=== PATIENT | female | born 1960 | race African-American/Black ===

== ENCOUNTER 2019-06-23 14:40 | Inpatient (IN) | payer SELFPAY ==
[~2019-06-23] VITALS: Ht 149.9 cm; Wt 71.6 kg
[~2019-06-23 14:40] MED LIST: ALAVERT10 M1 PO; ASPIRIN E.C. 8181 MG PO; CEPHALEXIN500 M1 PO; COENZYME Q-10100 MG PO; COZAAR50 MG PO; HYDROCHLOROTHIA25 MG PO; OMEGA 31000 MG PO; TENORMIN50 MG PO; VYTORIN 10 MG-41 TAB PO
[2019-06-23 17:26] LABS: HEMATOCRIT 43.8 % (37.0-47.0); HEMOGLOBIN 14.4 g/dl (12.5-16.0); MEAN CELL VOLUME 89 fl (80.0-100.0); MEAN CORPUSCULAR HEMOGLOBIN 29 pg (27.0-31.0); MEAN CORPUSCULAR HGB CONC 33 g/dl (33.0-37.0); PLATELET COUNT 422 K/mm3 (130-400); RED BLOOD COUNT 4.95 M/mm3 (4.10-5.30); REDCELL DISTRIBUTION WIDTH-CV 14.9 % (11.5-14.5)
[2019-06-23 17:32] LABS: INR 0.9 (0.8-3.0); PROTHROMBIN TIME 10.9 SECONDS (9.7-12.8)
[2019-06-23 17:34] LABS: PARTIAL THROMBOPLASTIN TIME 32.1 SECONDS (26.0-37.0)
[2019-06-23 17:38] LABS: ALBUMIN 4.2 gm/dL (3.5-5.0); BILIRUBIN,TOTAL 0.5 mg/dL (0.0-1.0); CALCIUM 9.5 mg/dL (8.4-10.2); CREATININE, serum 1.3 (0.52-1.25); POTASSIUM 4.5 mmol/L (3.4-5.0)
[2019-06-23] MEDS ORDERED: CRESTOR20 MG PO (17:49)
[2019-06-23] MEDS ORDERED: MITIGARE0.6 MG (17:50)
[2019-06-23] MEDS ORDERED: INDOCIN 25MG CA25 MG PO (17:51)
[2019-06-23] MEDS ORDERED: LIPITOR 40MG TA40 MG PO (17:51)
[2019-06-23] MEDS ORDERED: GLUCOPHAGE500 MG/TAB PO (17:51)
[2019-06-23] MEDS ORDERED: PRILOSEC 20MG20 MG PO (17:52)
[2019-06-23] MEDS ORDERED: TENORMIN100 MG PO (17:52)
[2019-06-23] MEDS ORDERED: MASON NATURAL2000 IU PO (17:53)
[2019-06-23 17:55] LABS: EOSINOPHIL 3 % (0-4); LYMPHOCYTE 31 % (20.0-51.0); NEUTROPHILS 65 % (42.0-75.2); PLATELET ESTIMATE INCREASED (NORMAL)
[2019-06-23] MEDS ORDERED: GLUCOPHAGE XR500 M1 PO (19:43)
[2019-06-23] MEDS ORDERED: COZAAR100 MG PO (19:44)
[2019-06-23] MEDS ORDERED: OMEGA-3 1000 MG1 CAP PO (19:45)
[2019-06-23] MEDS ORDERED: ASPIRIN E.C. 8181 MG PO (19:46)
[2019-06-23] MEDS ORDERED: HYGROTON 2525 MG/TAB PO (19:50)
[2019-06-23] MEDS ORDERED: LANTUS100 U/ML SQ (19:51)
--- NOTE | 2019-06-23 20:15 | NUR ---
Patient arrived to medical floor. Assessment complete. Lungs clear. Heart sounds normal. Bowels active x4. Pulses strong throughout. No edema noted. IV left wrist without complications. Denies pain at this time. Orientated to medical floor, room, and call light. Educated patient regarding clear liquid diet, stool sample, and I&Os with IV fluids. All questions answered at this time. Denies other needs. Call light in reach.
[2019-06-23 21:08] VITALS: BP 141/71; PULSE 69; TEMP 97.6
[2019-06-23 21:23] VITALS: BP 141/71; PULSE 69; TEMP 97.6
[2019-06-24] VITALS (7 sets, daily range): BP systolic 113–149; BP diastolic 66–81; PULSE 58–77; TEMP 97.6–98.4
--- NOTE | 2019-06-24 00:30 | NUR ---
Resting in bed. Denies needs. Call light in reach.
[2019-06-24 00:54] LABS: HEMOGLOBIN 11.7 g/dl (12.5-16.0)
--- NOTE | 2019-06-24 04:00 | NUR ---
Resting in bed. Denies needs. Call light in reach.
[2019-06-24 05:53] LABS: BASO # 0.1 (0.0-0.2); BASO % 0.6 % (0.0-2.0); EOS # 0.5 (0.0-0.7); EOS % 3.7 % (0-4.0); GRAN % 50.3 % (42.2-75.2); HEMOGLOBIN 11.2 g/dl (12.5-16.0); LYMPH # 4.7 (1.2-3.4); LYMPH % 38.7 % (20.0-51.0); MEAN CELL VOLUME 89 fl (80.0-100.0); MEAN CORPUSCULAR HEMOGLOBIN 29 pg (27.0-31.0); MEAN CORPUSCULAR HGB CONC 33 g/dl (33.0-37.0); MEAN PLATELET VOLUME 10.2 fl (7.4-10.4); MONO # 0.7 (0.1-0.6); MONO % 6.2 % (1.7-9.3); RED BLOOD COUNT 3.83 M/mm3 (4.10-5.30); REDCELL DISTRIBUTION WIDTH-CV 14.7 % (11.5-14.5)
[2019-06-24 06:00] LABS: HEMATOCRIT 33.9 % (37.0-47.0); PLATELET COUNT 301 K/mm3 (130-400)
[2019-06-24 06:02] LABS: CALCIUM 8.8 mg/dL (8.4-10.2); CREATININE, serum 1.09 (0.52-1.25); POTASSIUM 4.1 mmol/L (3.4-5.0)
--- NOTE | 2019-06-24 06:09 | NUR ---
Patient had uneventful night. No bowel movements throughout night. Denies needs this time. Call light in reach.
--- NOTE | 2019-06-24 07:08 | NUR ---
Report given to ARANZA Fabian
--- NOTE | 2019-06-24 07:50 | NUR ---
PATIENT RESTING IN BED. SHE DENIES ANY COMPLAINTS. REPORTS NO MORE STOOLS AT ALL SINCE 1100 YESTERDAY MORNING. BREAKFAST IS ORDERED
--- NOTE | 2019-06-24 11:39 | NUR ---
Patient lives at home with her (Misha Rojas phone: [phone]) in [place], [place] and plans to return home with her upon recovery. Patient is independent with daily living activities, has two children, one of which lives locally with grandkids who the patient is very involved with. Patient's primary care physician care is [facility], her pharmcy is [facility]), and she does not have advance directives completed at this time. Ian's (Misha) is retired therefore the patient and her have [employer] insurance coverage. No further needs at this time and social human services assistants will follow as needed.
--- NOTE | 2019-06-24 20:00 | NUR ---
Shift assessment complete. Patient awake, in bed. Drinking prep for colonoscopy in a.m. Patient states, she has had one bloody BM since starting the prep. Denies pain. Denies further needs at this time. Will continue to monitor.
[2019-06-25 03:47] VITALS: BP 160/67; PULSE 61; TEMP 98.9
--- NOTE | 2019-06-25 04:00 | NUR ---
Patient in bed, awake. Denies pain. Denies further needs at this time. Will continue to monitor.
[2019-06-25 06:24] LABS: CALCIUM 9.3 mg/dL (8.4-10.2); CREATININE, serum 0.94 (0.52-1.25)
[2019-06-25 06:35] LABS: BASO # 0.1 (0.0-0.2); BASO % 0.6 % (0.0-2.0); EOS # 0.5 (0.0-0.7); EOS % 4.2 % (0-4.0); GRAN # 5.6 (1.4-6.5); GRAN % 49.1 % (42.2-75.2); HEMOGLOBIN 11.5 g/dl (12.5-16.0); LYMPH # 4.5 (1.2-3.4); LYMPH % 39.9 % (20.0-51.0); MEAN CELL VOLUME 89 fl (80.0-100.0); MEAN CORPUSCULAR HEMOGLOBIN 29 pg (27.0-31.0); MEAN CORPUSCULAR HGB CONC 32 g/dl (33.0-37.0); MEAN PLATELET VOLUME 10.8 fl (7.4-10.4); MONO # 0.6 (0.1-0.6); MONO % 5.3 % (1.7-9.3); PLATELET COUNT 276 K/mm3 (130-400); RED BLOOD COUNT 4.01 M/mm3 (4.10-5.30); REDCELL DISTRIBUTION WIDTH-CV 14.5 % (11.5-14.5)
[2019-06-25 06:50] LABS: HEMATOCRIT 35.5 % (37.0-47.0)
--- NOTE | 2019-06-25 06:56 | NUR ---
PT TAKEN VIA STRETCHER FOR COLONOSCOPY BY [facility]ON, OR TRANSPORT.
[2019-06-25 08:00] VITALS: BP 139/73; PULSE 68; TEMP 97.8
--- NOTE | 2019-06-25 08:05 | NUR ---
PATIENT ARRIVED BACK TO ROOM 315 VIA WHEELCHAIR FROM COLONOSCOPY. PATIENT SETTELED INTO ROOM. AT THE BEDSIDE. POST-OP VSS. PATIENT IS A&OX4. VSS. TELE IN PLACE. BOWEL SOUNDS ACTIVE ALL FOUR QUADRANTS. PATIENT DENIES NAUSEA, VOMITING OR PAIN. POSITIVE PEDAL PULSES EQUAL BILATERALLY. SCD'S TO BLE. CALL LIGHT WITHIN REACH. NO NEEDS AT THIS TIME.
--- NOTE | 2019-06-25 11:17 | NUR ---
Initial visit; Patient thanked Chief Nursing Executive for looking in on her and states she is doing well and has someone who will stay in touch with their Termite Helper for her, her .
[2019-06-25 11:35] VITALS: BP 139/71; PULSE 72; TEMP 98.3
--- NOTE | 2019-06-25 12:25 | NUR ---
PATIENT'S LEFT FOREARM INT DISCONTINUED PER PENDING DISCHARGE. TIP INTACT. PATIENT TOLERATED WELL.
--- NOTE | 2019-06-25 12:55 | NUR ---
DISCHARGE INSTRUCTIONS REVIEWED WITH PATIENT. ALL QUESTIONS ANSWERED. PATIENT PERSONAL BELONGINGS GATHERED. PATIENT WAITING FOR RIDE TO ARRIVE FOR DISCHARGE.
--- NOTE | 2019-06-25 13:02 | NUR ---
PATIENT AMBULATED TO PERSONAL VEHICLE WITH MEDICAL STAFF. PATIENT DISCHARGED.
== END 2019-06-25 13:02 | disposition home or self-care (01) | DRG 378 ==
LOC: COL.ER 14:40 → MEDICAL 18:17
PROVIDERS: Emergency Medicine; Internal Medicine Gastroenterology; Nurse Practitioner Family; Physician Assistant; ADMIT Internal Medicine
PROC: 0DBE8ZX Excision of Large Intestine, Via Natural or Artificial Opening Endoscopic, Diagnostic (ICD-10-PCS; principal; 2019-06-25 07:00)
DX: K57.31 Diverticulosis of large intestine without perforation or abscess with bleeding (principal); N17.9 Acute kidney failure, unspecified; D72.829 Elevated white blood cell count, unspecified; E11.22 Type 2 diabetes mellitus with diabetic chronic kidney disease; I12.9 Hypertensive chronic kidney disease with stage 1 through stage 4 chronic kidney disease, or unspecified chronic kidney disease; N18.9 Chronic kidney disease, unspecified; D64.9 Anemia, unspecified; E78.5 Hyperlipidemia, unspecified; K21.9 Gastro-esophageal reflux disease without esophagitis; M10.9 Gout, unspecified; F17.210 Nicotine dependence, cigarettes, uncomplicated; K62.89 Other specified diseases of anus and rectum; Z79.82 Long term (current) use of aspirin; Z79.4 Long term (current) use of insulin
CPT/HCPCS: 99222-AI; 99239; C9113; J1815; J2250; J3010; J7030; J7120

== ENCOUNTER 2022-03-09 08:14 | Outpatient (CLI) | payer OTHER ==
[~2022-03-09] VITALS: Ht 149.9 cm; Wt 65.6 kg
[~2022-03-09 08:14] MED LIST changes: +ATARAX 10MG10 MG/TAB PO; +COZAAR100 MG PO; +CRESTOR20 MG PO; +FLONASEALLERGY NS; +GLUCOPHAGE XR500 M1 PO; +GLUCOPHAGE500 MG/TAB PO; +HYGROTON 2525 MG/TAB PO; +HYGROTON50 MG PO; +INDOCIN 25MG CA25 MG PO; +LANTUS100 U/ML SQ; +LIPITOR 40MG TA40 MG PO; +MITIGARE0.6 MG; +NORMODYNE200 MG PO; +NORVASC 5MG5 MG/TAB PO; +OMEGA-3 1000 MG1 CAP PO; +PHOSLO667 MG PO; +PRILOSEC 20MG20 MG PO; +PROAIR HFA0.09 MG/AC IH; +TENORMIN 5050 MG/TAB PO; +TENORMIN100 MG PO; +TRULICITY0.75 MG/0. SQ; +VITAMIN D31000 I1 PO; +VOLTAREN GEL 1%1 TU TP; +ZYLOPRIM 100MG100 MG PO; +ZYLOPRIM 300MG300 MG PO
[2022-03-09 08:50] VITALS: BP 159/104; PULSE 92; TEMP 98
[2022-03-09 10:59] VITALS: BP 173/93; PULSE 70
--- NOTE | 2022-03-09 11:00 | NUR ---
See merge for all medication, assessment, intervention, and vital sign times.
[2022-03-09 11:45] VITALS: BP 167/107; PULSE 75
[2022-03-09 12:00] VITALS: BP 164/99; PULSE 76
[2022-03-09 12:15] VITALS: BP 189/99; PULSE 79
[2022-03-09 12:30] VITALS: BP 190/102; PULSE 84
--- NOTE | 2022-03-09 13:05 | NUR ---
Pt is ready for departure. She has been resting comfortably with no pain at dialysis catheter site, and dressing to site has remained clean and dry. there is no swelling or other sign of bleeding. Vitals have remained stable. I reviewed dc instructions with pt who verbalized understanding. Pt was ambulatory to exit, where daughter was waiting to give pt a ride.
== END 2022-03-09 14:26 | disposition home or self-care (01) ==
LOC: COL.CAR 08:14
DX: T85.898A Other specified complication of other internal prosthetic devices, implants and grafts, initial encounter (principal); N18.6 End stage renal disease; F17.210 Nicotine dependence, cigarettes, uncomplicated; Z99.2 Dependence on renal dialysis
CPT/HCPCS: J0690; J1644

== ENCOUNTER → 2022-05-04 | Outpatient (CLI) | payer OTHER | LOC: COL.RAD 04-29 08:00 | DX: D35.02 Benign neoplasm of left adrenal gland (principal) | CPT/HCPCS: Q9967 ==

== ENCOUNTER → 2022-06-17 | Outpatient (CLI) | payer OTHER ==
[~2022-06-17] MED LIST changes: +CRESTOR 10MG10 MG PO; +NORCO 325 MG-51 TAB PO; +NORVASC 10MG10 MG PO
== END ==
LOC: COL.VAS 07:43
DX: I77.0 Arteriovenous fistula, acquired (principal)

== ENCOUNTER 2022-07-01 07:56 | Day surgery (SDC) | payer OTHER ==
[~2022-07-01] VITALS: Ht 152.4 cm; Wt 61.2 kg
[~2022-07-01 07:56] MED LIST changes: -CRESTOR 10MG10 MG PO; -NORCO 325 MG-51 TAB PO; -NORVASC 10MG10 MG PO
[2022-07-01 08:51] VITALS: BP 160/88; PULSE 81; TEMP 97
[2022-07-01 09:02] LABS: CREATININE, serum 6.61 mg/dL (0.57-1.11); POTASSIUM 4.7 mmol/L (3.5-4.5)
[2022-07-01] MEDS ORDERED: CRESTOR 10MG10 MG PO (09:08)
[2022-07-01] MEDS ORDERED: NORVASC 10MG10 MG PO (09:09)
[2022-07-01 11:16] VITALS: BP 117/79; PULSE 89
--- NOTE | 2022-07-01 11:16 | NUR ---
Patient returns to room 6 per cart from surgery accompanied by Megan COBIAN and Austin Humphries CRNA. Patient is on oxygen at 6L per mask. Patient coughing and has large amount of thick sputum noted draining down side of face. Unresponsive to verbal stimuli or touch. Keeps eyes closed. IV fluids infusing. Left AV fistula site intact with exofin skin glue.
--- NOTE | 2022-07-01 11:19 | NUR ---
Opens eyes now to verbal stimuli. Oxygen mask removed. Continues coughing. Less secretions. Sats 97% on room air. Will continue to monitor.
[2022-07-01] MEDS ORDERED: NORCO 325 MG-51 TAB PO (11:29)
[2022-07-01 11:31] VITALS: BP 125/71; PULSE 84
--- NOTE | 2022-07-01 11:31 | NUR ---
Taking few sips of water. Less coughing. Left AV fistula site without drainage and slight thrill noted.
[2022-07-01 11:46] VITALS: BP 141/63; PULSE 87
--- NOTE | 2022-07-01 11:46 | NUR ---
Continues to sip on water. Occasional non productive cough.
[2022-07-01 12:01] VITALS: BP 144/70; PULSE 71
--- NOTE | 2022-07-01 12:01 | NUR ---
Drinking orange juice. Offered snack and states wants to go home. Tolerates po fluids.
[2022-07-01 12:16] VITALS: BP 141/83; PULSE 76
--- NOTE | 2022-07-01 12:16 | NUR ---
IV discontinued and site is free of redness or swelling. Patient dresses self. Given dismissal instructions and voices understanding of these.
--- NOTE | 2022-07-01 12:37 | NUR ---
Dismissal instructions given and signed. All questions answered. Patient assisted into wheelchair and taken to the front door per wheelchair and assisted into vehicle with instructions in hand.
== END 2022-07-01 12:37 | disposition home or self-care (01) ==
LOC: SDCO 07:56
PROVIDERS: Surgery
DX: I12.0 Hypertensive chronic kidney disease with stage 5 chronic kidney disease or end stage renal disease (principal); E11.22 Type 2 diabetes mellitus with diabetic chronic kidney disease; N18.6 End stage renal disease; F17.210 Nicotine dependence, cigarettes, uncomplicated; Z79.899 Other long term (current) drug therapy; Z79.4 Long term (current) use of insulin
CPT/HCPCS: C1768; J0690; J2370; J2704; J3010; J7120

== ENCOUNTER 2022-07-06 08:09 | Day surgery (SDC) | payer OTHER ==
[~2022-07-06] VITALS: Ht 152.4 cm; Wt 61.6 kg
[~2022-07-06 08:09] MED LIST changes: +CRESTOR 10MG10 MG PO; +NORCO 325 MG-51 TAB PO; +NORVASC 10MG10 MG PO
[2022-07-06 08:58] VITALS: BP 174/99; PULSE 85; TEMP 98.4
[2022-07-06 09:00] LABS: CALCIUM 9.8 mg/dL (8.4-10.2); CREATININE, serum 7.83 mg/dL (0.57-1.11); POTASSIUM 4.6 mmol/L (3.5-4.5)
[2022-07-06] MEDS ORDERED: COZAAR 50MG50 MG/TAB PO (09:23)
[2022-07-06] MEDS ORDERED: PROTONIX 40MG T40 MG PO (09:38)
[2022-07-06 10:00] VITALS: BP 126/115; PULSE 84
[2022-07-06 10:15] VITALS: BP 157/90; PULSE 84; TEMP 96.9
--- NOTE | 2022-07-06 10:21 | NUR ---
1000 - PT arrives from procedure and was settled by Lindsey COBIAN; written report provided, however, it did not include respirations and temperature; BP, HR and SO2 obtained from vitals machine. 1015 - Vitals obtained. PT provided snack and drink. PT denies pain/nausea. Call gamboa is within use for TV controls. Non-slip socks remain on.
--- NOTE | 2022-07-06 10:23 | NUR ---
1015 - Full set of vitals obtained. PT denies pain.
[2022-07-06 10:30] VITALS: BP 167/90; PULSE 81
--- NOTE | 2022-07-06 10:33 | NUR ---
1030 - PT contacted per PT request; ETA 1100
--- NOTE | 2022-07-06 10:43 | NUR ---
1035 - Vitals obtained. IV discontinued. Catheter tip intact and pressure bandage applied. NO redness or swelling noted. DC instructions and educational material reviewed w/ PT who verbalized undestanding and signed the related paperwork. Questions answered to PT satisfaction. PT refused RN assistance changing into personal clothes. Call gamboa remains within reach if needed.
--- NOTE | 2022-07-06 10:59 | NUR ---
1055 - PT dismissed from endo via wheelchair by Payton COBIAN. PT has DC packet and personal belongings and was transferred into the care of her , who is driving private car. Additonal drink provided.
== END 2022-07-06 11:00 | disposition home or self-care (01) ==
LOC: SDCO 08:09
PROVIDERS: Nurse Anesthetist, Certified Registered
DX: K29.30 Chronic superficial gastritis without bleeding (principal); R13.10 Dysphagia, unspecified; K26.9 Duodenal ulcer, unspecified as acute or chronic, without hemorrhage or perforation; T18.2XXA Foreign body in stomach, initial encounter; K29.80 Duodenitis without bleeding; F17.210 Nicotine dependence, cigarettes, uncomplicated; K63.89 Other specified diseases of intestine; X58.XXXA Exposure to other specified factors, initial encounter
CPT/HCPCS: J2704; J7120

== ENCOUNTER 2022-08-16 10:30 | Outpatient (CLI) | payer OTHER ==
[~2022-08-16] VITALS: Ht 152.5 cm; Wt 62.7 kg
[2022-08-16] VITALS (8 sets, daily range): BP systolic 166–188; BP diastolic 92–105; PULSE 73–80; TEMP 97.6
[~2022-08-16 10:30] MED LIST changes: +COZAAR 50MG50 MG/TAB PO; +PROTONIX 40MG T40 MG PO
[2022-08-16] MEDS ORDERED: CATAPRES 0.1MG0.1 MG PO (10:58)
[2022-08-16] MEDS ORDERED: ASPIRIN E.C. 8181 MG PO (10:58)
[2022-08-16] MEDS ORDERED: TRULICITY0.75 MG/0. SQ (10:59)
[2022-08-16] MEDS ORDERED: PROAIR HFA0.09 MG/AC IH (11:19)
[2022-08-16] MEDS ORDERED: VOLTAREN GEL 1%1 TU TP (11:20)
--- NOTE | 2022-08-16 12:54 | NUR ---
SEE MERGE FOR VITAL SIGNS, ASSESSMENT, INTERVENTIONS AND MEDICATIONS GIVEN.
--- NOTE | 2022-08-16 14:32 | NUR ---
DC instructions reviewed with pt, she expressed understanding. She has tolerated PO fluids without issue following return from procedure. Pt is steady on feet in room. Dressing remains clean, dry and intact. She is assisted out to 's car by wheelchair with belongings.
== END 2022-08-16 14:32 | disposition home or self-care (01) ==
LOC: COL.CAR 10:30
DX: T82.41XA Breakdown (mechanical) of vascular dialysis catheter, initial encounter (principal); N18.9 Chronic kidney disease, unspecified; Y73.8 Miscellaneous gastroenterology and urology devices associated with adverse incidents, not elsewhere classified
CPT/HCPCS: C1751; C1769; J0690; J1644; J2250; J3010

== ENCOUNTER 2022-11-22 07:53 | Inpatient (IN) | payer OTHER ==
[~2022-11-22] VITALS: Ht 152.4 cm; Wt 60.1 kg
[2022-11-22] VITALS (15 sets, daily range): BP systolic 91–143; BP diastolic 49–70; PULSE 66–81; TEMP 97.6–98.6
[~2022-11-22 07:53] MED LIST changes: +CATAPRES 0.1MG0.1 MG PO
[2022-11-22 09:20] LABS: BASO % 0.2 % (0.0-2.0); EOS # 0.1 K/mm3 (0.0-0.7); EOS % 0.8 % (0.0-4.0); GRAN # 7.4 K/mm3 (1.4-6.5); LYMPH # 2.9 K/mm3 (1.2-3.4); MEAN CELL VOLUME 94 fl (80.0-100.0); MEAN CORPUSCULAR HGB CONC 32 g/dl (33.0-37.0); MEAN PLATELET VOLUME 10.1 fl (7.4-10.4); MONO # 0.7 K/mm3 (0.1-0.6); MONO % 6.1 % (1.7-9.3); PLATELET COUNT 234 K/mm3 (130-400); RED BLOOD COUNT 1.77 M/mm3 (4.10-5.30); REDCELL DISTRIBUTION WIDTH-CV 14.8 % (11.5-14.5)
[2022-11-22 09:24] LABS: HEMATOCRIT 16.7 % (37.0-47.0); HEMOGLOBIN 5.4 g/dl (12.5-16.0); MEAN CORPUSCULAR HEMOGLOBIN 31 pg (27-31)
[2022-11-22 09:47] LABS: ALBUMIN 3.1 gm/dL (3.4-4.8); BILIRUBIN,TOTAL 0.5 mg/dL (0.2-1.2); CALCIUM 8.6 mg/dL (8.4-10.2); CREATININE, serum 9.23 mg/dL (0.57-1.11); POTASSIUM 4.6 mmol/L (3.5-4.5); TOTAL PROTEIN 5.9 gm/dL (6.2-8.1)
[2022-11-22] MEDS ORDERED: RENVELA800 MG PO (09:57)
[2022-11-22] MEDS ORDERED: AURYXIA1 GM PO (09:57)
[2022-11-22] MEDS ORDERED: NORMODYNE200 MG PO (10:02)
--- NOTE | 2022-11-22 11:00 | NUR ---
PATIENT ARRIVED TO UNIT IN STABLE CONDITION. PATIENT ALERT ORIENTED AND AWAKE. ASSESSMENT DONE. JES STATED HER HUSABND IS TO BRING HER MEDICATION LIST.
--- NOTE | 2022-11-22 13:20 | NUR ---
PATIENT AWAKE AND ALERT, BLOOD TRANSFUSING. PATIENT TOLERATING WELL. NO S/S OF REACTION AT THIS TIME. CALL LIGHT WITH IN REACH. NO NEEDS OR COMPLAITNS AT THIS TIME.
--- NOTE | 2022-11-22 15:09 | NUR ---
PATIENT COMPLAINED OF SEVERE ITCHING ALL OVER AND STATED SHE WANTED TO "JUMP OUT" OF HER SKIN. BLOOD TRANSFUSION STOPPED. IV LINE FLUSHED. NO RASH OR ANY PHYSICAL SIGN OF REACTION BESIDE PATIETN COMPLAINTS. ONCE LINE WAS FLUSHED PATIETN STATED SHE WAS BEGINNING TO FEEL BETTER AND "ITS BEGINNING TO GO AWAY." PHYSICIAN MADE AWARE.
--- NOTE | 2022-11-22 17:10 | NUR ---
SPOKE WITH THEODORE. DURING LAST TRANSFUSIO SHE WOULD MAKE COMMENTS LIKE "EW, BLOOD! WHOS BLOOD IS THAT!" RN SPOKE CALMLY WITH NANCY AND ENSURED HER THAT BLOOD GOES THROUGH A SPECIFIC PROCESS TO ENSURE IT IS SAFE FOR ADMINISTRATION. EDUCATED PATIENT ON HER STUATION AND THE NEED OF THIS BLOOD TRANSFUSION IS CRITICAL FOR HER. PRIOR TO PICKING UP BLOOD, THIS RN PRVIDED REASSURING AND ENCOURAGING WORDS THAT THIS TRANSFUSION IS NECENSSARY, AND WHILE THE THOUGHT OF THE BLOOD MAY BE UCOMFORTABLE FOR HER, SHE WILL BE OK, SHE WILL MAKE IT THROUGH THIS TRANSFUSION. PATIENT AGREED TO HAVE SECOND UNIT.
--- NOTE | 2022-11-22 18:41 | NUR ---
BLOOD TRANSFUSION STILL INFUSING AT 90CC (SLOWEST RATE ALLOWED TO COMPLETE BLOOD WITHIN 4 HOUR REQUIRED TIME.) PATIENT TOLERATING WELL. PATIENT DENIES ANY NEEDS OR COPMLAINTS AT THIS TIME. HAS HAD AT LEAST 5 BM SINCE ARRIVAL FROM ED. BOWL PREP AT BEDSIDE. CALL LIGHT WITH IN REACH.
[2022-11-22] MEDS ORDERED: PROTONIX 40MG T40 MG PO (19:38)
[2022-11-23] VITALS (11 sets, daily range): BP systolic 105–170; BP diastolic 51–79; PULSE 69–107; TEMP 97.9–98.9
[2022-11-23 00:21] LABS: HEMATOCRIT 18.7 % (37.0-47.0); HEMOGLOBIN 6.1 g/dl (12.5-16.0)
--- NOTE | 2022-11-23 01:11 | NUR ---
DR MORENO NOTIFIED OF PATIENTS HGB OF 6.1 AFTER 2 UNITS OF BLOOD. PROVIDER STATED TO RECHECK H&H IN MORNING. NO FURTHER ORDERS GIVEN AT THIS TIME.
[2022-11-23 06:45] LABS: HEMATOCRIT 17.8 % (37.0-47.0)
[2022-11-23 07:00] LABS: CALCIUM 8.2 mg/dL (8.4-10.2); CREATININE, serum 11.8 mg/dL (0.57-1.11)
[2022-11-23 07:06] LABS: POTASSIUM 6.5 mmol/L (3.5-4.5)
--- NOTE | 2022-11-23 09:36 | NUR ---
CRUZITO met with the patient to discuss discharge plan. The patient lives in [place] with her , Misha (ph#[phone]). She reports independence with ADLs and does not have any DME. The patient's PCP is Dr. Wolf at the [facility] and she receives her medications from [facility]. She receives dialysis at [facility] M/W[facility]F at [phone]. The patient does not have a DPOA-HC and she was not interested in completing one at this time. The patient plans to return home with her upon discharge. No additional needs at this time. *Discharge plan: home with *
--- NOTE | 2022-11-23 11:36 | NUR ---
PATIENT BLOOD TRANSFUSION CONTINUING WITH DIALYSIS NURSE AT [facility]. STATION COOK HAS THIS RN'S EXTENSION IF NEEDED. THIS RN WAS PRESENT IN ROOM FOR THE FIRST 15 MINUTES. PATIENT DENIES ANY NEEDS OR COMPLAINTS. WILL CHECK BACK.
[2022-11-23 12:11] LABS: HEMATOCRIT 20.9 % (37.0-47.0); HEMOGLOBIN 7.1 g/dl (12.5-16.0)
[2022-11-23 20:24] LABS: HEMATOCRIT 15.3 % (37.0-47.0); HEMOGLOBIN 5.2 g/dl (12.5-16.0)
[2022-11-24] VITALS (14 sets, daily range): BP systolic 129–186; BP diastolic 46–82; PULSE 80–114; TEMP 97.7–99.1
[2022-11-24 06:48] LABS: BASO # 0.1 K/mm3 (0.0-0.2); BASO % 0.4 % (0.0-2.0); EOS % 0.2 % (0.0-4.0); GRAN # 13.2 K/mm3 (1.4-6.5); GRAN % 78.2 % (42.2-75.2); LYMPH # 2.2 K/mm3 (1.2-3.4); MEAN CELL VOLUME 93 fl (80.0-100.0); MEAN CORPUSCULAR HGB CONC 34 g/dl (33.0-37.0); MEAN PLATELET VOLUME 10.6 fl (7.4-10.4); MONO # 1.2 K/mm3 (0.1-0.6); PLATELET COUNT 175 K/mm3 (130-400); RED BLOOD COUNT 2.04 M/mm3 (4.10-5.30); REDCELL DISTRIBUTION WIDTH-CV 15.1 % (11.5-14.5)
[2022-11-24 07:01] LABS: HEMOGLOBIN 6.4 g/dl (12.5-16.0); MEAN CORPUSCULAR HEMOGLOBIN 31 pg (27-31)
[2022-11-24 07:11] LABS: ALANINE AMINOTRANSFERASE < 6 U/L (0-55); ALBUMIN 2.5 gm/dL (3.4-4.8); ALKALINE PHOSPHATASE 40 U/L (40-150); ANION GAP 11 mmol/L (7-16); AST,SGOT 16 U/L (5-34); BILIRUBIN,TOTAL 0.5 mg/dL (0.2-1.2); BLOOD UREA NITROGEN 28 mg/dL (10-20); CALCIUM 8.4 mg/dL (8.4-10.2); CARBON DIOXIDE 23 mmol/L (23-31); CHLORIDE 103 mmol/L (98-107); CREATININE, serum 6.68 mg/dL (0.57-1.11); GLUCOSE 85 mg/dL (70-99); PHOSPHOROUS 8.3 mg/dL (2.3-4.7); POTASSIUM 5.3 mmol/L (3.5-4.5); SODIUM 137 mmol/L (136-145); TOTAL PROTEIN 4.5 gm/dL (6.2-8.1)
--- NOTE | 2022-11-24 11:01 | NUR ---
SHIFT ASSESSMENT COMPLETED. PATIENT IS ALERT AND ORIENTED X4. DENIES PAIN. SCHEDULED FOR DIALYSIS THIS MORNING. HGB LOW, ONE UNIT OF PRBC ORDERED, RECHECK H AND H 3 HOURS POST TRANSFUSION PER MADDI HUA. FISTULA TO LEFT ARM POSITIVE FOR THRILL AND BRUIT. DIALYSIS CATH TO RIGHT UPPER CHEST INTACT, DRESSING IN PLACE. DENIES ANY NEEDS AT THIS TIME. CALL LIGHT WITHIN REACH.
--- NOTE | 2022-11-24 14:15 | NUR ---
PATIENT IN BED AT THIS TIME. RECEIVED ONE UNIT OF BLOOD DURING DIALYSIS PER DR. MORENO REQUEST. AWAITING DELVIERY OF BOWEL PREP FROM PHARMACY. PER DR. SHIN, PATIENT TO START BOWEL PREP NOW AND BE PREMEDICATED WITH REGLAN AND ZOFRAN.
[2022-11-24 15:34] LABS: HEMATOCRIT 21.1 % (37.0-47.0); HEMOGLOBIN 7.5 g/dl (12.5-16.0)
--- NOTE | 2022-11-24 15:48 | NUR ---
DUPLICATE BLOOD ORDER NOTED, ORDER D/C PER MADDI HUA. BLOOD BANK UPDATED. PATIENT'S RECHECK HGB NOTED TO BE ABOVE 7. PATIENT CURRENTLY TAKING BOWEL PREP AND TOLERATING WELL.
--- NOTE | 2022-11-24 18:16 | NUR ---
PATIENT HYPERTENSIVE. DR. MORENO NOTIFIED, ORDERS RECEIVED TO RESUME HOME CATAPRES AND LOSARTAN, AND TO GIVE A DOSE OF EACH NOW. ORDERS ENTERED. PATIENT DENIES ANY NEEDS AT THIS TIME. ON BOWEL PREP, TOLERATING WELL, DENIES NAUSEA. CALL LIGHT WITHIN REACH.
--- NOTE | 2022-11-24 18:31 | NUR ---
PATIENT TOLERATING BOWEL PREP WELL, LATEST BOWEL MOVEMENT NOTED TO BE CLEAR. PER PATIENT, SHE DID HAVE A FEW "DARKER" STOOLS, WHICH WERE NOTED TO BE MOSTLY BROWN IN COLOR WITH SCANT BLOOD NOTED. PATIENT STATES SHE FEELS GOOD AND WANTS TO CONTINUE BOWEL PREP.
[2022-11-25] VITALS (15 sets, daily range): BP systolic 147–175; BP diastolic 56–73; PULSE 64–91; TEMP 98–99
[2022-11-25 07:01] LABS: ALBUMIN 2.7 gm/dL (3.4-4.8); BILIRUBIN,TOTAL 0.6 mg/dL (0.2-1.2); CALCIUM 8.5 mg/dL (8.4-10.2); CREATININE, serum 4.84 mg/dL (0.57-1.11); PHOSPHOROUS 5.1 mg/dL (2.3-4.7); POTASSIUM 3.7 mmol/L (3.5-4.5); TOTAL PROTEIN 4.8 gm/dL (6.2-8.1)
[2022-11-25 07:31] LABS: MEAN CELL VOLUME 93 fl (80.0-100.0); MEAN CORPUSCULAR HGB CONC 34 g/dl (33.0-37.0); MEAN PLATELET VOLUME 10.4 fl (7.4-10.4); PLATELET COUNT 159 K/mm3 (130-400); RED BLOOD COUNT 2.05 M/mm3 (4.10-5.30); REDCELL DISTRIBUTION WIDTH-CV 15.8 % (11.5-14.5)
[2022-11-25 07:32] LABS: MEAN CORPUSCULAR HEMOGLOBIN 31 pg (27-31)
[2022-11-25 07:33] LABS: HEMOGLOBIN 6.4 g/dl (12.5-16.0)
[2022-11-25 09:01] LABS: BASOPHIL 2 % (0-2); LYMPHOCYTE 12 % (20.0-51.0); METAMYELOCYTE 1 % (0-0); MYELOCYTE 1 % (0-0); NEUTROPHILS 75 % (42.0-75.2); NUCLEATED RED BLOOD CELL 1 (0-6); PLATELET ESTIMATE NORMAL (NORMAL)
[2022-11-25 09:02] LABS: ANISOCYTOSIS 1+
[2022-11-25 09:04] LABS: POLYCHROMASIA 1+
--- NOTE | 2022-11-25 10:09 | NUR ---
SHIFT ASSESSMENT COMPLETED AND MORNING MEDICATIONS ADMINISTERED PER ORDER. PATIENT IS ALERT AND ORIENTED. DENIES PAIN. LUNGS CTA. FISTULA TO LEFT ARM POSITIVE FOR THRILL AND BRUIT. DIALYSIS CATHETER TO RIGHT CHEST WITH GAUZE DRESSING INTACT. PATIENT DID NOT FINISH BOWEL PREP LAST NIGHT, AND IS HAVING SOME CLEAR AND SOME YELLOW/BROWN STOOLS. ADMINISTERING 1 UNIT PRBC AT THIS TIME, WILL ATTEMPT AN ENEMA FOLLOWING BLOOD TRANSFUSION. PATIENT DENIES ANY NEEDS AT THIS TIME. CALL LIGHT WITHIN REACH.
--- NOTE | 2022-11-25 11:16 | NUR ---
PATIENT TOLERATING BLOOD ADMINISTRATION WELL. IV NOTED TO BE LEAKING SLIGHTLY. IV FLUSHED AND IS PATENT. RATE ON BLOOD REDUCED TO 60ML/HR, WILL CONTINUE TO MONITOR IV SITE
--- NOTE | 2022-11-25 13:49 | NUR ---
BLOOD TRANSFUSION COMPLETE. PATIENT HAS BEEN NPO SINCE MIDNIGHT EXCEPT BOWEL PREP, WHICH PATIENT STOPPED TAKING AROUND 0900. PATIENT HAS CLEAR STOOLS, WILL HOLD OFF ON ENEMA FOR NOW, PATIENT TO LEAVE FOR COLONOSCOPY AROUND 1500.
--- NOTE | 2022-11-25 15:47 | NUR ---
PATIENT OFF THE UNIT- GOING TO ENDO FOR COLONOSCOPY. REPORT GIVEN TO ARANZA CHACON.
--- NOTE | 2022-11-25 16:40 | NUR ---
Patient arrived to room 357 via stretcher. Post op vitals initiated.
--- NOTE | 2022-11-25 16:55 | NUR ---
PATIENT BACK FROM ENDO IN ROOM AT THIS TIME. VITAL SIGNS STABLE, BP IS ELEVATED AT 171/73. PER NOMI LOBO, PATIENT RECEIVED LOBETALOL FOR BP WHILE IN PROCEDURE, BUT RN OKAY TO GIVE ADDITIONAL BP MEDICATIONS PER ORDERS UPON ARRIVAL. PRN HYDRALAZINE ADMINISTERED PER ORDER. DIALYSIS/ ADA DIET REORDERED PER MADDI HUA. 3 HOUR POST TRANSFUSION HGB AND HCT SCHEDULED WHILE PATIENT WAS IN ENDO, ORDER PLACED FOR NOW. PATIENT DENIES ANY NEEDS AT THIS TIME. CALL LIGHT WITHIN REACH.
[2022-11-25 17:18] LABS: HEMATOCRIT 22.1 % (37.0-47.0); HEMOGLOBIN 7.6 g/dl (12.5-16.0)
[2022-11-26 00:13] VITALS: BP 144/63; PULSE 78; TEMP 98.8
[2022-11-26 03:35] VITALS: BP 150/47; PULSE 74; TEMP 98.3
[2022-11-26 07:19] VITALS: BP 154/73; PULSE 77; TEMP 98.2
--- NOTE | 2022-11-26 08:34 | NUR ---
PATIENT TAKEN VIA WHEELCHAIR BY REGIONAL DIRECTOR OF ADMISSIONS TO DIALYSIS.
--- NOTE | 2022-11-26 09:13 | NUR ---
Patient awake and oriented in bed upon enering the room. Patient has an INT in the right forearm with minimal bruising, with no signs of redness or edema. Patient has a dialysis access port on the right upper chest with no sign of redness or edema. There were no complaints of pain at this time from the patient. Primary nurse notified.
[2022-11-26 10:03] LABS: MEAN CELL VOLUME 91 fl (80.0-100.0); MEAN CORPUSCULAR HGB CONC 34 g/dl (33.0-37.0); MEAN PLATELET VOLUME 9.8 fl (7.4-10.4); PLATELET COUNT 174 K/mm3 (130-400); REDCELL DISTRIBUTION WIDTH-CV 16.8 % (11.5-14.5)
[2022-11-26 10:07] LABS: HEMATOCRIT 22.7 % (37.0-47.0); HEMOGLOBIN 7.8 g/dl (12.5-16.0); MEAN CORPUSCULAR HEMOGLOBIN 31 pg (27-31)
[2022-11-26 10:21] LABS: ALBUMIN 2.8 gm/dL (3.4-4.8); BILIRUBIN,TOTAL 0.7 mg/dL (0.2-1.2); CALCIUM 8.3 mg/dL (8.4-10.2); CREATININE, serum 5.91 mg/dL (0.57-1.11); POTASSIUM 3.2 mmol/L (3.5-4.5); TOTAL PROTEIN 5.1 gm/dL (6.2-8.1)
[2022-11-26 10:57] LABS: ANISOCYTOSIS 1+; BAND 2 % (0-10); EOSINOPHIL 2 % (0-4); LYMPHOCYTE 18 % (20.0-51.0); NEUTROPHILS 71 % (42.0-75.2); PLATELET ESTIMATE NORMAL (NORMAL)
[2022-11-26 11:41] VITALS: BP 181/81; PULSE 69; TEMP 98
--- NOTE | 2022-11-26 14:00 | NUR ---
PATIENT GIVEN DISCHARGE INSTRUCTIONS AND EDUCATION. IV DISCONTINUED. MEDS TO AVOID DISCUSSED WITH NANCY. NANCY VERBALIZES UNDERSTANDING. PATIENT TAKEN BY THIS RN TO PATIENT ENTRANCE WHERE SHE WAS PICKED UP BY HER . PATIENT LEFT IN STABLE CONDITION.
== END 2022-11-26 14:00 | disposition home or self-care (01) | DRG 377 ==
LOC: COL.ER 07:53 → MEDICAL 09:44
PROVIDERS: Family Medicine; Internal Medicine; Internal Medicine Gastroenterology; Nurse Anesthetist, Certified Registered; Registered Nurse; ADMIT Internal Medicine Nephrology
PROC: 30233N1 Transfusion of Nonautologous Red Blood Cells into Peripheral Vein, Percutaneous Approach (ICD-10-PCS; 2022-11-22)
PROC: 5A1D70Z Performance of Urinary Filtration, Intermittent, Less than 6 Hours Per Day (ICD-10-PCS; 2022-11-23)
PROC: 0DJD8ZZ Inspection of Lower Intestinal Tract, Via Natural or Artificial Opening Endoscopic (ICD-10-PCS; principal; 2022-11-25 15:00)
DX: K57.31 Diverticulosis of large intestine without perforation or abscess with bleeding (principal); N18.6 End stage renal disease; I12.0 Hypertensive chronic kidney disease with stage 5 chronic kidney disease or end stage renal disease; D62 Acute posthemorrhagic anemia; E78.5 Hyperlipidemia, unspecified; E11.22 Type 2 diabetes mellitus with diabetic chronic kidney disease; E11.42 Type 2 diabetes mellitus with diabetic polyneuropathy; F17.210 Nicotine dependence, cigarettes, uncomplicated; M10.9 Gout, unspecified; D63.1 Anemia in chronic kidney disease; J30.2 Other seasonal allergic rhinitis; E66.9 Obesity, unspecified; I95.9 Hypotension, unspecified; E87.5 Hyperkalemia; E83.39 Other disorders of phosphorus metabolism; A63.0 Anogenital (venereal) warts; K64.0 First degree hemorrhoids; Z79.82 Long term (current) use of aspirin; Z99.2 Dependence on renal dialysis; Z23 Encounter for immunization; Z68.26 Body mass index [BMI] 26.0-26.9, adult
CPT/HCPCS: J1200; J1644; J1756; J2405; J2597; J2704; J2765; J7030; P9016; Q5105; Q9967

== ENCOUNTER 2022-12-07 10:43 | Emergency (ER) | payer OTHER ==
[~2022-12-07] VITALS: Ht 152.4 cm; Wt 60.0 kg
[~2022-12-07 10:43] MED LIST changes: +AURYXIA1 GM PO; +RENVELA800 MG PO
[2022-12-07 12:17] LABS: BASO # 0.1 K/mm3 (0.0-0.2); BASO % 0.6 % (0.0-2.0); EOS # 0.2 K/mm3 (0.0-0.7); EOS % 1.7 % (0.0-4.0); GRAN # 8.1 K/mm3 (1.4-6.5); GRAN % 71.1 % (42.2-75.2); LYMPH # 2.1 K/mm3 (1.2-3.4); LYMPH % 18.3 % (20.0-51.0); MEAN CELL VOLUME 102 fl (80.0-100.0); MEAN CORPUSCULAR HGB CONC 31 g/dl (33.0-37.0); MEAN PLATELET VOLUME 9.7 fl (7.4-10.4); MONO # 0.9 K/mm3 (0.1-0.6); MONO % 7.8 % (1.7-9.3); PLATELET COUNT 392 K/mm3 (130-400); REDCELL DISTRIBUTION WIDTH-CV 17.9 % (11.5-14.5)
[2022-12-07 12:18] LABS: HEMATOCRIT 26.4 % (37.0-47.0); HEMOGLOBIN 8.1 g/dl (12.5-16.0); MEAN CORPUSCULAR HEMOGLOBIN 31 pg (27-31)
[2022-12-07 12:30] LABS: ALBUMIN 3.1 gm/dL (3.4-4.8); BILIRUBIN,TOTAL 0.7 mg/dL (0.2-1.2); CALCIUM 9.2 mg/dL (8.4-10.2); CREATININE, serum 9.26 mg/dL (0.57-1.11); POTASSIUM 4.6 mmol/L (3.5-4.5); TOTAL PROTEIN 6.4 gm/dL (6.2-8.1)
[2022-12-07 16:11] VITALS: BP 158/75; PULSE 97; TEMP 98.1
== END 2022-12-07 16:26 | disposition short-term general hospital (02) ==
LOC: COL.ER 10:43
PROVIDERS: Nurse Practitioner
DX: K62.5 Hemorrhage of anus and rectum (principal); I12.0 Hypertensive chronic kidney disease with stage 5 chronic kidney disease or end stage renal disease; E11.22 Type 2 diabetes mellitus with diabetic chronic kidney disease; N18.6 End stage renal disease; N17.9 Acute kidney failure, unspecified; F17.200 Nicotine dependence, unspecified, uncomplicated; Z99.2 Dependence on renal dialysis

== ENCOUNTER → 2022-12-28 | Outpatient (CLI) | payer OTHER ==
[~2022-12-28] VITALS: Ht 152.4 cm; Wt 59.9 kg
[~2022-12-28] MED LIST changes: +VITAMIN D362.5 MC1 PO
[2022-12-28 08:13] VITALS: BP 203/105; PULSE 91; TEMP 97.5
[2022-12-28 08:50] VITALS: BP 187/104; PULSE 96
== END ==
LOC: COL.RAD 07:46
DX: Z45.2 Encounter for adjustment and management of vascular access device (principal)

== ENCOUNTER 2023-02-01 12:37 | Day surgery (SDC) | payer OTHER ==
[~2023-02-01] VITALS: Ht 152.4 cm; Wt 60.0 kg
[2023-02-01 13:27] VITALS: BP 150/79; PULSE 73; TEMP 974
[2023-02-01 13:32] VITALS: BP 150/79; PULSE 73; TEMP 97.4
[2023-02-01] MEDS ORDERED: NORCO 325 MG-51 TAB PO (15:02)
[2023-02-01] MEDS ORDERED: LIDO35.4 TP (15:02)
[2023-02-01 15:13] LABS: CALCIUM 9.7 mg/dL (8.4-10.2); CREATININE, serum 8.94 mg/dL (0.57-1.11); POTASSIUM 5.1 mmol/L (3.5-4.5)
[2023-02-01 16:50] VITALS: BP 142/68; PULSE 76; TEMP 97.4
[2023-02-01 17:05] VITALS: BP 142/70; PULSE 76
[2023-02-01 17:07] VITALS: TEMP 97.5
[2023-02-01 17:20] VITALS: BP 141/73; PULSE 72
--- NOTE | 2023-02-01 17:35 | NUR ---
1650 RETURNS TO ROOM 5 PER CART. AWAKE, ALERT. RESP UNLABORED. VITAL SIGNS OBTAINED. DEEP BREATHES AND COUGHS WELL ON REQUEST. HOB ELEVATED 50 DEGREES. DENIES DISCOMFORT. GAUZE PAD TO RECTAL AREA WITH SCANT RED DRAINAGE OBSERVED. 1705 TOLERATES PO JUICE WITHOUT NAUSEA 1720 DISCHARGE INSTRUCTIONS REVIEWED. PATIENT VERBALIZES UNDERSTANDING. COPY PROVIDED IN DISCHCARGE FOLDER 1727 SITS ON EDGE OF BED. DRESSES SELF.DENIES DISCOMFORT. RESP UNLABORED
[2023-02-07] VITALS (10 sets, daily range): O2SAT 100
[2023-02-08] VITALS (68 sets, daily range): O2SAT 93–100
== END 2023-02-01 17:37 | disposition home or self-care (01) ==
LOC: SDCO 12:37
PROVIDERS: Registered Nurse
DX: A63.0 Anogenital (venereal) warts (principal); F17.210 Nicotine dependence, cigarettes, uncomplicated
CPT/HCPCS: J0690; J1100; J2405; J2704; J3010; J7120

== ENCOUNTER 2023-02-07 01:44 | Inpatient (IN) | payer OTHER ==
[2023-02-07] VITALS (1055 sets, daily range): BP systolic 162–188; BP diastolic 97–106; PULSE 70–92; TEMP 98.6–99.1; O2SAT 75–100
[~2023-02-07] VITALS: Ht 152.4 cm; Wt 66.4 kg
[~2023-02-07 01:44] MED LIST changes: +LIDO35.4 TP
[2023-02-07 02:01] LABS: BASO # 0.1 K/mm3 (0.0-0.2); BASO % 0.5 % (0.0-2.0); EOS # 0.3 K/mm3 (0.0-0.7); EOS % 1.8 % (0.0-4.0); GRAN # 11.1 K/mm3 (1.4-6.5); HEMATOCRIT 41.5 % (37.0-47.0); HEMOGLOBIN 12.8 g/dl (12.5-16.0); LYMPH # 2.3 K/mm3 (1.2-3.4); MEAN CELL VOLUME 104 fl (80.0-100.0); MEAN CORPUSCULAR HEMOGLOBIN 32 pg (27-31); MEAN CORPUSCULAR HGB CONC 31 g/dl (33.0-37.0); MEAN PLATELET VOLUME 9.9 fl (7.4-10.4); MONO # 0.8 K/mm3 (0.1-0.6); MONO % 5.2 % (1.7-9.3); PLATELET COUNT 381 K/mm3 (130-400); RED BLOOD COUNT 3.99 M/mm3 (4.10-5.30); REDCELL DISTRIBUTION WIDTH-CV 16.5 % (11.5-14.5)
[2023-02-07 02:09] LABS: INR 0.8 (0.8-3.0); PROTHROMBIN TIME 9.7 SECONDS (9.7-12.8)
[2023-02-07 02:12] LABS: PARTIAL THROMBOPLASTIN TIME 28.1 SECONDS (26.0-37.0)
[2023-02-07 02:13] LABS: ARTERIAL BLD GAS TCO2 CT 19.6; ARTERIAL BLOOD GAS BASE EXCESS -4.9 (-2-2); ARTERIAL BLOOD GAS HCO3 18.7 meq/L (22-26); ARTERIAL BLOOD GAS PCO2 30.2 mmHg (35-45); ARTERIAL BLOOD GAS PO2 93.6 mmHg (80-100); ARTERIAL BLOOD GAS pH 7.41 (7.35-7.45)
[2023-02-07 02:20] LABS: ALBUMIN 3.9 gm/dL (3.4-4.8); ALKALINE PHOSPHATASE 128 U/L (40-150); ANION GAP 17 mmol/L (7-16); AST,SGOT 21 U/L (5-34); BILIRUBIN,TOTAL 0.7 mg/dL (0.2-1.2); BLOOD UREA NITROGEN 66 mg/dL (10-20); CARBON DIOXIDE 18 mmol/L (23-31); CHLORIDE 104 mmol/L (98-107); CREATININE, serum 10.38 mg/dL (0.57-1.11); GLUCOSE 115 mg/dL (70-99); POTASSIUM 5.7 mmol/L (3.5-4.5); SODIUM 139 mmol/L (136-145); TOTAL PROTEIN 8.3 gm/dL (6.2-8.1)
[2023-02-07 02:23] LABS: ALANINE AMINOTRANSFERASE < 6 U/L (0-55)
[2023-02-07 02:30] LABS: TROPONIN-I 0.035 ng/mL (0.00-0.033)
--- NOTE | 2023-02-07 03:30 | NUR ---
HAND OFF REPORT RECEIVED FROM ARANZA KURTZ. PT ARRIVED TO UNIT 0355 WITH RN AND RT ON BIPAP. PT TRANSFERED TO ICU BED WITH ASSISTANCE. PT ON NITRO DRIP AT 20 MCG/MIN - 6.0 ML/HR, BIPAP AT 18/8 FIO2 100%, VS T-98.7 ORAL, 63.2KG, 176/106 BP, P 76, 26 R. PT HAS LT FA DIALYSIS FISTULA WITH THRILL PRESENT. LUNG SOUNDS COARSE BL BASES, BL UPPER INSP WHEEZES. PT REPORTS WAKING UP FROM SLEEP BEING SOB, IS FEELING IMPROVED FROM ARRIVAL TO ED. PT REPORTS THAT SHE DOES MAKE SOME URINE, RECEIVES DIALYSIS ON //. PT ORIENTED TO ROOM, BED IN LOW LOCK POSITION, CALL LIGHT WITHIN REACH.
--- NOTE | 2023-02-07 10:53 | NUR ---
BEDSIDE REPORT RECEIVED FROM ARANZA MORALES. PT RESTING IN BED, VSS. PT CURRENTLY ON BIPAP, TOLERATING WELL. NITRO INFUSING ORDERED TO PERIPHERAL IV IN R FOREARM. PT DENIES NEEDS AT THIS TIME, CALL LIGHT IN REACH.
--- NOTE | 2023-02-07 14:45 | NUR ---
SW met with patien to complete intake and discuss discharge plan. Patient reports that she lives at home with her Misha ([phone]) in [place]. Patient reports to being fully independent with her ADL's and IADL's. She does not utilize any DME to assist with mobility. Patient does not utilize any home oxygen at home, however patient is currently on 12 L of oxygen at rest. Patient receives dialysis on ,,F at 0530 and had a session this morning in room. PCP is at the [facility] and she utilizes [facility] for prescriptions. Patient reports that she does not have a DPOA-HC established and does not wish to create one at this time.
[2023-02-07] MEDS ORDERED: NORVASC 10MG10 MG PO (16:17)
[2023-02-07] MEDS ORDERED: ASPIRIN 81M81 MG/TA2 PO (16:18)
--- NOTE | 2023-02-07 19:12 | NUR ---
RECEIVED REPORT FROM CAROLIN SEPULVEDA RN. ORDERS, MEICATIONS, AND LABS VERIFIED.
--- NOTE | 2023-02-07 19:12 | NUR ---
CALL TO DR. MORENO AT 1904 FOR TROPONIN RESULT OF 0.066. NO CHANGE SINCE LAST TROPONIN DRAW. DR. MORENO OK WITH CHANGING PATIENT'S STATUS FROM ICU TO IMCU. DR. MORENO WOULD LIKE A CALL AT 2200 WITH AN UPDATE ON PATIENT'S CONDITION.
--- NOTE | 2023-02-07 19:20 | NUR ---
HEAD TO TOE ASSESSMENT COMPLETE AT THIS TIME. PATIENT DENIES PAIN, CHEST PAIN, OR SHORTNESS OF BREATH. PATIENT'S BLOOD PRESSURE REMAINS HIGH AT 178/97 WITH MEDICATIONS SCHEDULED AT 2100. PATIENT DENIES CONCERNS AT THIS TIME. WILL CONTINUE TO MONITOR PATIENT'S BP CLOSELY. PATIENT CURRENTLY RESTING COMFORTABLY IN BED CALL LIGHT IS WITHIN REACH OF PATIENT.
[2023-02-08] VITALS (264 sets, daily range): BP systolic 129–148; BP diastolic 59–82; PULSE 59–76; TEMP 97.8–98.8; O2SAT 91–100
[2023-02-08 04:43] LABS: BASO % 0.5 % (0.0-2.0); EOS # 0.2 K/mm3 (0.0-0.7); EOS % 2.1 % (0.0-4.0); GRAN # 6.5 K/mm3 (1.4-6.5); GRAN % 73.3 % (42.2-75.2); LYMPH # 1.5 K/mm3 (1.2-3.4); LYMPH % 16.5 % (20.0-51.0); MEAN CORPUSCULAR HGB CONC 33 g/dl (33.0-37.0); MEAN PLATELET VOLUME 9.7 fl (7.4-10.4); MONO # 0.7 K/mm3 (0.1-0.6); MONO % 7.3 % (1.7-9.3); PLATELET COUNT 333 K/mm3 (130-400); RED BLOOD COUNT 3.27 M/mm3 (4.10-5.30)
[2023-02-08 04:45] LABS: HEMATOCRIT 32.5 % (37.0-47.0); HEMOGLOBIN 10.6 g/dl (12.5-16.0); MEAN CELL VOLUME 99 fl (80.0-100.0); MEAN CORPUSCULAR HEMOGLOBIN 32 pg (27-31)
[2023-02-08 05:00] LABS: ALBUMIN 3.2 gm/dL (3.4-4.8); CALCIUM 9.4 mg/dL (8.4-10.2); CREATININE, serum 8.72 mg/dL (0.57-1.11); POTASSIUM 5.6 mmol/L (3.5-4.5)
--- NOTE | 2023-02-08 05:13 | NUR ---
REPORT CALLED TO JOSI ON SURGICAL. PATIENT WILL BE TRANSFERRING TO ROOM 348.
--- NOTE | 2023-02-08 05:50 | NUR ---
PATIENT TRANSFERRED TO ROOM 348 ON SURGICAL FLOOR VIA WHEELCHAIR AT 0540. PATIENT TRANSFERRED INTO NEW BED, RT AT BEDSIDE TO ADJUST OXYGEN. PATIENT RESTING COMFORTABLY WITH CALL LIGHT IN HAND
--- NOTE | 2023-02-08 07:47 | NUR ---
Pt is returning to bed after using the bathroom. Morning medications administered per eMAR. Shift assessment completed. Neuro checks completed. Pt remains on 6L per high flow NC with O2 sat WNL of 95%. Pt denies SOB. INT in R hand patent, no edema or redness. INT in R wrist patent, no edema or redness. LUE restriction enforced, bruit/thrill noted. No c/o at this time. Pt waiting for dialysis today. Call light within reach.
--- NOTE | 2023-02-08 10:28 | NUR ---
Initial visit; Katya watching television. She appeared to not want to visit and just thanked [employer] Director for stopping though declined spiritual care.
--- NOTE | 2023-02-08 11:30 | NUR ---
Report given to ARANZA Keene.
--- NOTE | 2023-02-08 12:00 | NUR ---
patient noted to not have order for code status. rosa herrera updated and order requested for code status. awaiting food service order clerk.
--- NOTE | 2023-02-08 12:39 | NUR ---
THIS RN ASSUMED CARE FOR PATIENT AT APPROX 1045. PATIENT IN ROOM POST DIALYSIS. LUNGS DIMINISHED WITH EXPIRATORY WHEEZE. ALERT AND ORIENTED X4. .DENIES PAIN. FISTULA POSITIVE FOR THRILL AND BRUIT. DENIES NEEDS. CALL LIGHT WITHIN REACH.
[2023-02-09 04:09] VITALS: BP 136/63; PULSE 73; TEMP 98.1
[2023-02-09 07:38] LABS: BASO # 0.1 K/mm3 (0.0-0.2); BASO % 0.7 % (0.0-2.0); EOS # 0.2 K/mm3 (0.0-0.7); EOS % 1.7 % (0.0-4.0); GRAN % 67.8 % (42.2-75.2); HEMOGLOBIN 10.2 g/dl (12.5-16.0); LYMPH # 1.8 K/mm3 (1.2-3.4); MEAN CELL VOLUME 99 fl (80.0-100.0); MEAN CORPUSCULAR HEMOGLOBIN 32 pg (27-31); MEAN CORPUSCULAR HGB CONC 32 g/dl (33.0-37.0); MEAN PLATELET VOLUME 9.7 fl (7.4-10.4); MONO # 0.8 K/mm3 (0.1-0.6); MONO % 9.2 % (1.7-9.3); PLATELET COUNT 315 K/mm3 (130-400); RED BLOOD COUNT 3.17 M/mm3 (4.10-5.30); REDCELL DISTRIBUTION WIDTH-CV 15.8 % (11.5-14.5)
[2023-02-09 07:42] VITALS: BP 146/64; PULSE 75; TEMP 98.7
[2023-02-09 07:55] LABS: HEMATOCRIT 31.5 % (37.0-47.0)
[2023-02-09 07:57] LABS: ALBUMIN 3.2 gm/dL (3.4-4.8); CALCIUM 9.7 mg/dL (8.4-10.2); CREATININE, serum 8.02 mg/dL (0.57-1.11); PHOSPHOROUS 5.4 mg/dL (2.3-4.7); POTASSIUM 5.1 mmol/L (3.5-4.5)
--- NOTE | 2023-02-09 08:06 | NUR ---
Pt sitting up in bed eating breakfast upon this nurse's entry. A&OX4. Pleasant demeanor. Shift assessment completed. Respirations are even and unlabored on room air. No c/o SOA, dyspnea, or pain. No cyanosis noted to lips or extremities. Pt denies any lightheadedness, dizziness, or weakness. Pt has to PIV access in the R hand and R wrist. No signs of infiltration. Pt has LFA fistula. Thrill and bruit present. She is hoping to discharge home today and awaiting dialysis. She reports she receives dialysis on Mondays, Wednesdays, and Fridays but had received dialysis yesterday as well. Pt reports she took a shower this morning independently. Pt has no complaints or concerns.
--- NOTE | 2023-02-09 10:00 | NUR ---
OVERSEEN MANAGER PROGRESSIVE CARE COMPLETE PATIENT CARE AND MEDICATION ADMINISTRATION
[2023-02-09 11:52] VITALS: BP 127/81; PULSE 86; TEMP 97.8
--- NOTE | 2023-02-09 14:30 | NUR ---
Pt sitting up in bed watching tv upon this nurse's entry. A&Ox4. Pt escorted to dialysis w/ standby assist. Gait is steady. Respirations are even and unlabored. Pt does report SOA upon arrival to dialysis room 321 from her room 316. No cyanosis to lips noted. Pt will receive dialysis then return to room.
[2023-02-09] MEDS ORDERED: PREDNISONE20 MG PO (14:54)
[2023-02-09] MEDS ORDERED: SPIRIVA RE2.5 MCG/Ac IH (14:56)
--- NOTE | 2023-02-09 17:32 | NUR ---
Pt completed dialysis. Pressure drsg applied to LFA. Pt then ambulated back to pt room 316 w/ standby assist. Gait steady w/o use of ambulation device. No dyspnea or SOA w/ ambulation. Respirations even and unlabored. Pt given discharge educations/instructions. Pt verbalizes understanding. R wrist and R hand PIV discontinued w/ catheter intact. Pt obtained all of her belongings from the room and was escorted off unit to [facility] @ 2499.
== END 2023-02-09 17:30 | disposition home or self-care (01) | DRG 640 ==
LOC: COL.ER 01:44 → ICU 02:29 → SURG 02-08 03:50 → MEDICAL 02-08 15:51
PROVIDERS: Emergency Medicine; Registered Nurse; ADMIT Internal Medicine Nephrology
PROC: 5A09457 Assistance with Respiratory Ventilation, 24-96 Consecutive Hours, Continuous Positive Airway Pressure (ICD-10-PCS; principal; 2023-02-07)
PROC: 5A1D70Z Performance of Urinary Filtration, Intermittent, Less than 6 Hours Per Day (ICD-10-PCS; 2023-02-07)
DX: E87.70 Fluid overload, unspecified (principal); J18.9 Pneumonia, unspecified organism; N18.6 End stage renal disease; J96.01 Acute respiratory failure with hypoxia; I16.1 Hypertensive emergency; I12.0 Hypertensive chronic kidney disease with stage 5 chronic kidney disease or end stage renal disease; J44.9 Chronic obstructive pulmonary disease, unspecified; D63.1 Anemia in chronic kidney disease; E83.39 Other disorders of phosphorus metabolism; E87.5 Hyperkalemia; E11.22 Type 2 diabetes mellitus with diabetic chronic kidney disease; M10.9 Gout, unspecified; E66.9 Obesity, unspecified; F17.210 Nicotine dependence, cigarettes, uncomplicated; J30.2 Other seasonal allergic rhinitis; E78.5 Hyperlipidemia, unspecified; Z99.2 Dependence on renal dialysis; Z23 Encounter for immunization; Z68.27 Body mass index [BMI] 27.0-27.9, adult
CPT/HCPCS: A9284; J0456; J0696; J1170; J1940; J7050; J7512